=== PATIENT | male | born 1975 | race Caucasian/White ===

== ENCOUNTER 2018-01-04 17:24 | Inpatient (IN) | payer OTHER ==
[~2018-01-04] VITALS: Ht 175.3 cm; Wt 95.9 kg
--- NOTE | 2018-01-04 17:42 | ED GI/GU/ABDOMINAL COMPLAINT ---
History of Present Illness General Chief Complaint: Abdominal Pain/Flank Pain Stated Complaint: ABD PAIN, +N/V/D Source: patient Exam Limitations: no limitations Vital Signs & Intake/Output Vital Signs & Intake/Output Vital Signs Date Time Temp Pulse Resp B/P B/P Pulse O2 O2 Flow FiO2 Mean Ox Delivery Rate 01/04 2245 100.7 01/04 2155 101.5 01/04 2146 100.2 121 20 140/80 94 Room Air 01/04 2038 Room Air 01/04 2033 98.8 119 18 123/75 98 01/04 1728 98.7 123 15 149/91 97 Room Air Room Air Allergies Coded Allergies: morphine (VOMITING 01/04/18) Triage Note: PT SENT TO ED FROM [facility] TO RULE OUT DIVERTICULITIS. PT HAS BILATERAL LOWER ABD PAIN THAT STARTED YESTERDAY WITH NAUSEA AND VOMITING. +BRB IN STOOL, REPORTS +PRESSURE TO BLADDER AREA. MEDICATED WITH 4 MG PO ZOFRAN AT [facility]. PT NOTICEABLY UNCOMFORTABLE IN TRIAGE. Triage Nurses Notes Reviewed? 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 Patient has had a few episodes of nonbloody nonbilious emesis. Last bowel movement was within last 24 hours no blood no melena noted. Patient hasn't taken any medications for symptoms. Denies any dysuria hematuria or testicular pain or swelling back pain chest pain shortness of breath. Patient is complaining of intermittent shaky chills and tactile fevers. (Rojelio GARCIA,Jose) Reconcile Medications Duloxetine HCl 30 MG CAPSULE.DR 90 MG PO DAILY ANXIETY (Reported) Levothyroxine Sodium (Synthroid) 50 MCG TABLET 1 TAB PO DAILY HYPOTHYROIDISM (Reported) (Chad SINGH,Sukhwinder Melendez) Past History Travel History Traveled to [place] past 21 day No Medical History Any Pertinent Medical History? 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 No (Jose Ramierz) Review of Systems Review of Systems Constitutional: Reports: no symptoms. EENTM: Reports: no symptoms. Respiratory: Reports: no symptoms. Cardiovascular: Reports: no symptoms. GI: Reports: see HPI, abdominal pain. Genitourinary: Reports: no symptoms. Musculoskeletal: Reports: no symptoms. Skin: Reports: no symptoms. Neurological/Psychological: Reports: no symptoms. Hematologic/Endocrine: Reports: no symptoms. Immunologic/Allergic: Reports: no symptoms. All Other Systems: Reviewed and Negative (Jose Ramirez) Physical Exam Physical Exam General Appearance: mild distress Head: atraumatic Eyes: Bilateral: normal appearance. Ears, Nose, Throat, Mouth: moist mucous membrane Respiratory: normal breath sounds Cardiovascular: tachycardia Gastrointestinal: normal bowel sounds, soft, tenderness Extremities: normal range of motion Neurologic/Psych: no motor/sensory deficits, awake Core Measures ACS in differential dx? No Sepsis Present: Yes Sepsis Focused Exam Completed? Yes (Jose Ramirez) Progress Differential Diagnosis: AAA, AMI, appendicitis, biliary colic, bowel obstruction , colon cancer, cholecystitis, diverticulitis, epididymitis, esophageal varices, gastritis, hepatitis, hernia, hemorrhoids, ischemic bowel, inflamm bowel dis, orchitis, pancreatitis, prostatitis, peptic ulcer, PUD/GERD, perforated viscous, pyelonephritis, SBO, testicular torsion, ureterolithiasis, urinary retention, urethritis, UTI/pyelo Plan of Care: Orders Procedure Date/time Status Nothing by Mouth 01/05 B Active CBC WITHOUT DIFFERENTIAL 01/05 600 Active BASIC ELECTROLYTES PLUS BUN&CR 01/05 600 Active Weight 01/04 2146 Active Vital Signs 01/04 2146 Active Teach/Educate 01/04 2146 Active Pain Treatment and Response 01/04 2146 Active Nutritional Intake, Monitor 01/04 2146 Active Isolation 01/04 2146 Active Intake & Output 01/04 2146 Active Patient Care Conference 01/04 2146 Active Activity/Ambulation 01/04 2146 Active Pathway - chart 01/04 2057 Active LACTIC ACID 01/05 2044 Complete EKG 01/04 1930 Active Patient Data 01/04 1911 Active Code Status 01/04 1911 Active Add-on Test (ER Only) 01/04 1851 Active TYPE & SCREEN (NOT X-MATCH) 01/04 185 Complete Intake & Output 01/04 184 Active URINALYSIS 01/04 174 Active LACTIC ACID 01/04 174 Complete COMPREHENSIVE METABOLIC PANEL 01/04 174 Complete CBC WITHOUT DIFFERENTIAL 01/05 1744 Complete PROTHROMBIN TIME 01/04 1741 Complete Admit to inpatient 01/04 UNK Active VTE Mechanical Prophylaxis 01/04 UNK Active Vital Signs 01/04 UNK Active Intake & Output 01/04 UNK Complete Activity/Ambulation 01/04 UNK Active Current Medications Sig/Opal Start time Last Medication Dose Stop Time Status Admin Ceftriaxone Sodium 1,000 MG DAILY 01/05 0900 AC (Rocephin) Metronidazole 500 MG IQ8 01/05 0000 AC (Flagyl) N/A 1 UNIT (No Carrier) Heparin Sodium 5,000 UNIT Q8 01/04 2200 AC (Porcine) Acetaminophen 1,000 MG Q6P PRN 01/04 2100 AC 01/04 (Ofirmev) 2155 N/A 1 UNIT (No Carrier) Dextrose/Sodium 1,000 ML .Q8H 01/04 2100 AC 01/04 Chloride 2136 (D5-Normal Saline) Gentamicin Sulfate 240 MG ONE ONE 01/04 2100 CAN (Gentamicin) 01/04 2130 Dextrose/Water 100 ML (D5W) Lorazepam 0.5 MG Q4P PRN 01/04 2100 AC (Ativan) Morphine Sulfate 2 MG Q2P PRN 01/04 2100 AC (MORPHINE SULFATE) Ondansetron HCl 4 MG Q6PRN PRN 01/04 2100 AC (Zofran) Laboratory Tests 01/04/18 2250: Lactic Acid 0.6 L 01/04/181744: Anion Gap 12, Estimated GFR > 60, BUN/Creatinine Ratio 17.5, Glucose 122 H, Lactic Acid 1.2, Calcium 10.2, Total Bilirubin 1.1, AST 18, ALT 42, Alkaline Phosphatase 83, Total Protein 7.4, Albumin 4.7, Globulin 2.7, Albumin/Globulin Ratio 1.7, CBC w Diff MAN DIFF ORDERED, RBC 4.91, MCV 90.6, MCH 29.8, MCHC 33.0, RDW 13.9, MPV 7.8, Gran % 87.3 H, Lymphocytes % 6.3 L, Monocytes % 6.1, Eosinophils % 0, Basophils % 0.3, Absolute Granulocytes 17.9 H, Absolute Lymphocytes 1.3, Absolute Monocytes 1.2 H, Absolute Eosinophils 0, Absolute Basophils 0.1, Platelet Estimate ADEQUATE, Normocytic RBCs VERIFIED, Normochromic RBCs VERIFIED 01/04/18 1741: PT 13.5 H, INR 1.24 H Initially patient was in mild distress however requested only Toradol for pain, Reglan was also administered for continued nausea CT scan shows concerns of diverticulitis with perforation and free air I discussed results with patient where he suddenly became excessively anxious when he was administered Ativan. Patient was placed nothing by mouth I discussed patient with Dr. Washington who will admit patient under his service He states no emergent warranting of surgical intervention currently upon admission Diagnostic Imaging: Viewed by Me: CT Scan. Radiology Impression: acute abnormality Initial ED EKG: none Comments: PATIENT: JASPER HAM PRESENT AGE: 42 PATIENT ACCOUNT NO: [id number] : 76 LOCATION: [facility] ORDERING PHYSICIAN: Jose GARCIA SERVICE DATE: 01/04/18 EXAM TYPE: CAT - CT ABD & PELVIS W IV CONTRAST EXAMINATION: CT ABDOMEN AND PELVIS WITH CONTRAST CLINICAL INFORMATION: Generalized abdominal pain COMPARISON: 10/16/2011 TECHNIQUE: Multidetector volumetric imaging was performed from the lung bases through the pubic symphysis following the uneventful administration of: Oral contrast: No Intravenous contrast: 95 cc Optiray 320 Sagittal and coronal reformatted images were obtained on the technologist workstation. FINDINGS: LUNG BASES: The visualized lung bases are unremarkable. LIVER, GALLBLADDER, AND BILIARY TREE: The liver is normal in size, shape, and attenuation. No focal hepatic lesion or biliary ductal dilatation is present. The gallbladder is unremarkable with no evidence of radiopaque gallstones, gallbladder wall thickening, or obvious pericholecystic inflammatory changes. PANCREAS: Normal; no mass or surrounding fluid. SPLEEN: Normal size. No focal lesion. ADRENAL GLANDS: Normal; no mass. KIDNEYS AND URETERS: The kidneys are normal in size, shape, and attenuation. No hydronephrosis, hydroureter, or calculi. GASTROINTESTINAL TRACT: Stomach and small bowel are nondilated. The appendix is normal. There is moderate sigmoid diverticulosis with sigmoid wall thickening and adjacent fluid and fat stranding. The changes appear centered around a diverticulum in coronal image 41/91 and axial image 79/111, more consistent with acute diverticulitis and colitis. In addition, there is free air within the pelvis and extending retroperitoneally, adjacent the aorta and IVC, nearly to the level of the duodenum. No discrete abscess seen. ABDOMINAL WALL: No significant hernia is appreciated. LYMPHOVASCULAR STRUCTURES: No lymphadenopathy. The aorta is unremarkable. BLADDER: No focal mass or wall thickening seen. No bladder calculi. PELVIC VISCERA: The prostate and seminal vesicles are normal. OSSEOUS STRUCTURES: No acute or suspicious osseous abnormality. IMPRESSION: Findings consistent with perforated sigmoid diverticulitis. No abscess seen. Consider colonoscopy after treatment to exclude a microperforated colon cancer which can present similarly. This critical result was discussed with Jose Serrato MD by telephone at 01/04/2018 6:49 PM and it was ascertained that the content and urgency of the report was understood at the time of direct communication. DICTATED BY: Ronni Watson MD DATE/TIME DICTATED:01/04/181844 [employer] HAND FINISHER:HEENA DATE/TIME TRANSCRIBED:01/04/181844 (Jsoe Ramirez) Departure Departure Disposition: STILL A PATIENT Condition: Guarded Clinical Impression Primary Impression: Diverticulitis of intestine with perforation Referrals: Darlene SINGH,Nolberto Ly (PCP/Family) Departure Forms: Customer Survey General Discharge Information Admission Note Spoke With: Brock Washington DO Documentation of Exam: Documentation of any treatments & extenuating circumstances including Concerns Regarding Discharge (functional status, medication knowledge or non-compliance, living conditions, etc.) that warrant an admission rather than observation: [ Patient requires close observation IV antibiotics IV pain medications, repeat labs possible surgical intervention ANTIEMETICS IV fluids] (Jose Ramirez) PA/FLY FINISHER Co-Sign Statement Statement: ED Attending supervision documentation- [x] I saw and evaluated the patient. I have also reviewed all the pertinent lab results and diagnostic results. I agree with the findings and the plan of care as documented in the PA's/FLY FINISHER's documentation. [] I have reviewed the ED Record and agree with the PA's/FLY FINISHER's documentation. [] Additions or exceptions (if any) to the PAs/FLY FINISHER's note and plan are summarized below: [] (Chad SINGH,Sukhwinder Melendez)
[2018-01-04 18:00] LABS: ABSOLUTE BASOPHIL COUNT 0.1 /CUMM (0.0-0.2); ABSOLUTE EOSINOPHIL COUNT 0 /CUMM (0.0-0.7); ABSOLUTE GRANULOCYTE CT 17.9 /CUMM (1.4-6.5); ABSOLUTE LYMPH COUNT 1.3 /CUMM (1.2-3.4); ABSOLUTE MONOCYTE COUNT 1.2 /CUMM (0.10-0.60); BASOPHIL % 0.3 % (0.0-2.0); EOSINOPHIL % 0 % (0-5); HEMATOCRIT 44.4 % (42-52); MEAN CORPUSCULAR HGB 29.8 PG (27.0-31.0); MEAN CORPUSCULAR VOLUME 90.6 FL (80.0-94.0); MEAN PLATELET VOLUME 7.8 FL (7.4-10.4); PLATELET COUNT 216 /CUMM (130-400); RBC DISTRIBUTION WIDTH 13.9 % (11.5-14.5); RED BLOOD CELL CT 4.91 /CUMM (4.70-6.10); WHITE BLOOD CELL COUNT 20.5 /CUMM (4.8-10.8)
[2018-01-04 18:01] LABS: GRANULOCYTE % 87.3 % (42.2-75.2)
--- NOTE | 2018-01-04 18:54 | CT SCAN REPORT ---
EXAMINATION: CT ABDOMEN AND PELVIS WITH CONTRAST CLINICAL INFORMATION: Generalized abdominal pain COMPARISON: 10/16/2011 TECHNIQUE: Multidetector volumetric imaging was performed from the lung bases through the pubic symphysis following the uneventful administration of: Oral contrast: No Intravenous contrast: 95 cc Optiray 320 Sagittal and coronal reformatted images were obtained on the technologist workstation. FINDINGS: LUNG BASES: The visualized lung bases are unremarkable. LIVER, GALLBLADDER, AND BILIARY TREE: The liver is normal in size, shape, and attenuation. No focal hepatic lesion or biliary ductal dilatation is present. The gallbladder is unremarkable with no evidence of radiopaque gallstones, gallbladder wall thickening, or obvious pericholecystic inflammatory changes. PANCREAS: Normal; no mass or surrounding fluid. SPLEEN: Normal size. No focal lesion. ADRENAL GLANDS: Normal; no mass. KIDNEYS AND URETERS: The kidneys are normal in size, shape, and attenuation. No hydronephrosis, hydroureter, or calculi. GASTROINTESTINAL TRACT: Stomach and small bowel are nondilated. The appendix is normal. There is moderate sigmoid diverticulosis with sigmoid wall thickening and adjacent fluid and fat stranding. The changes appear centered around a diverticulum in coronal image 41/91 and axial image 79/111, more consistent with acute diverticulitis and colitis. In addition, there is free air within the pelvis and extending retroperitoneally, adjacent the aorta and IVC, nearly to the level of the duodenum. No discrete abscess seen. ABDOMINAL WALL: No significant hernia is appreciated. LYMPHOVASCULAR STRUCTURES: No lymphadenopathy. The aorta is unremarkable. BLADDER: No focal mass or wall thickening seen. No bladder calculi. PELVIC VISCERA: The prostate and seminal vesicles are normal. OSSEOUS STRUCTURES: No acute or suspicious osseous abnormality. IMPRESSION: Findings consistent with perforated sigmoid diverticulitis. No abscess seen. Consider colonoscopy after treatment to exclude a microperforated colon cancer which can present similarly. This critical result was discussed with Jose Serrato MD by telephone at 01/04/2018 6:49 PM and it was ascertained that the content and urgency of the report was understood at the time of direct communication.
--- NOTE | 2018-01-04 19:12 | History & Physical Pre-Op ---
Katelyn Joy 01/04/18 1912: General Information and HPI Source of Information: patient, family History of Present Illness: 42m presents to ED with approximately 18hr history of worsening lower abd pain. He ate breakfast yesterday, then had vague lower abdominal pain thoughout the day which worsened overnight. He was nauseous though could not vomit. Had sweats and subjective fever, though temp was normal per . Last Bm this am, mix of loose and constipated. No issues voiding. Called out of work today, and felt worse so presented to ED. No history of diverticular disease, no history of GI issues. PMHx significant for laryngeal ca (diagnosed 3 yrs ago, treated with RT/CT, now in remission). Did have a G-tube during that time that has since been removed. No other history of abdominal surgery Allergies/Medications Allergies: Coded Allergies: morphine (VOMITING 01/04/18) Home Med list Duloxetine HCl 30 MG CAPSULE.DR 90 MG PO DAILY ANXIETY (Reported) Levothyroxine Sodium (Synthroid) 50 MCG TABLET 1 TAB PO DAILY HYPOTHYROIDISM (Reported) Past History Medical History EENT: hx laryngeal ca Cardiovascular: NONE Respiratory: NONE Gastrointestinal: sp Gtube (now removed) Renal: NONE Psychiatric: anxiety, depression Endocrine: HYPOTHYROIDISM Blood Disorders: NONE Cancer(s): laryngeal ca 2015- treated with RT/CT. remission Surgical History Pertinent Surgical History: gtube 2014, now removed, Past Family/Social History Psychosocial History Where Do You Live? Home Who Do You Live With? 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 ext- calves soft nt Last 24 Hrs of Labs/Nayan: Laboratory Tests 01/04/18 1745: Anion Gap 12, Estimated GFR > 60, BUN/Creatinine Ratio 17.5, Glucose 122 H, Lactic Acid 1.2, Calcium 10.2, Total Bilirubin 1.1, AST 18, ALT 42, Alkaline Phosphatase 83, Total Protein 7.4, Albumin 4.7, Globulin 2.7, Albumin/Globulin Ratio 1.7, CBC w Diff MAN DIFF ORDERED, RBC 4.91, MCV 90.6, MCH 29.8, MCHC 33.0, RDW 13.9, MPV 7.8, Gran % 87.3 H, Lymphocytes % 6.3 L, Monocytes % 6.1, Eosinophils % 0, Basophils % 0.3, Absolute Granulocytes 17.9 H, Absolute Lymphocytes 1.3, Absolute Monocytes 1.2 H, Absolute Eosinophils 0, Absolute Basophils 0.1, Platelet Estimate ADEQUATE, Normocytic RBCs VERIFIED, Normochromic RBCs VERIFIED 01/04/18 174: PT 13.5 H, INR 1.24 H Diagnostic Data Other Results SERVICE DATE: 01/04/18-1755 EXAM TYPE: CAT - CT ABD & PELVIS W IV CONTRAST EXAMINATION: CT ABDOMEN AND PELVIS WITH CONTRAST CLINICAL INFORMATION: Generalized abdominal pain COMPARISON: 10/16/2011 TECHNIQUE: Multidetector volumetric imaging was performed from the lung bases through the pubic symphysis following the uneventful administration of: Oral contrast: No Intravenous contrast: 95 cc Optiray 320 Sagittal and coronal reformatted images were obtained on the technologist workstation. FINDINGS: LUNG BASES: The visualized lung bases are unremarkable. LIVER, GALLBLADDER, AND BILIARY TREE: The liver is normal in size, shape, and attenuation. No focal hepatic lesion or biliary ductal dilatation is present. The gallbladder is unremarkable with no evidence of radiopaque gallstones, gallbladder wall thickening, or obvious pericholecystic inflammatory changes. PANCREAS: Normal; no mass or surrounding fluid. SPLEEN: Normal size. No focal lesion. ADRENAL GLANDS: Normal; no mass. KIDNEYS AND URETERS: The kidneys are normal in size, shape, and attenuation. No hydronephrosis, hydroureter, or calculi. GASTROINTESTINAL TRACT: Stomach and small bowel are nondilated. The appendix is normal. There is moderate sigmoid diverticulosis with sigmoid wall thickening and adjacent fluid and fat stranding. The changes appear centered around a diverticulum in coronal image 41/91 and axial image 79/111, more consistent with acute diverticulitis and colitis. In addition, there is free air within the pelvis and extending retroperitoneally, adjacent the aorta and IVC, nearly to the level of the duodenum. No discrete abscess seen. ABDOMINAL WALL: No significant hernia is appreciated. LYMPHOVASCULAR STRUCTURES: No lymphadenopathy. The aorta is unremarkable. BLADDER: No focal mass or wall thickening seen. No bladder calculi. PELVIC VISCERA: The prostate and seminal vesicles are normal. OSSEOUS STRUCTURES: No acute or suspicious osseous abnormality. IMPRESSION: Findings consistent with perforated sigmoid diverticulitis. No abscess seen. Consider colonoscopy after treatment to exclude a microperforated colon cancer which can present similarly. Assessment/Plan Assessment/Plan: A- 42yoM with contained pelvic/retroperitoneal perforation, likely diverticular in origin, with significant leukocytosis and tachycardia P- Dw Dr. Washington, imaging reviewed personally by him. No acute surgical intervention required at this time. Admit as inpt to surgical service, npo, serial labs, serial abd exams, gentx1 now, jamil/flag continuous, ivf, iv meds. will closely monitor. As Ranked By This Provider Problem List: 1. Diverticulitis of intestine with perforation Brock Washington DO 01/05/18 0959: Attending MD Review Statement Attending Statement Attending MD Statement: examined this patient, discuss w/resident/PA/STRIP TANK TENDER, agreed w/resident/PA/STRIP TANK TENDER, discussed with family, reviewed EMR data (avail), discussed w/ nursing, reviewed images Attending Assessment/Plan: Patient seen and examined, agree with above. Overnight events noted, currently appeared comfortable/sleeping/relaxed, did c/o some lower abdominal tenderness, mild nausea. Tm 101.4, Tc 99 HR 120's-110's BP elevated. Abd-soft, ND, lower abdominal tenderness without peritoneal signs. Labs - chemistry good, WBC down to 15 from 20. Currently patient appears to be comfortable and did admit to being hungry which he was not yesterday, his pain is only severe with getting up and he is not taking much as far pain meds go. At this time will continue conservatice management as patient seems ot be comfortable, encouraged to take pain meds as needed will put on Toradol, increase ceftriaxone to 2 grams (will give an extra gram right now), Gentamicin x 1 dose today (240 mg), NPO/IVF, DVT prophylaxis (discussed importance with patient and family), I did explain to patient and family that if his condition worsens will likely need a laparotomy and an ostomy (which they understood) and I explained that this may take time to improve completely. Patient and family understand everything and agree with the plan.
--- NOTE | 2018-01-04 19:12 | Admission Core Measures ---
Acute Coronary Syndrome (CM) ACS Core Measures Acute Coronary Syndrome Diagnosis No Congestive Heart Failure (NEW) CHF Core Measures Congestive Heart Failure Diagnosis No Cerebrovascular Accident (NEW) CVA Core Measures CVA/TIA Diagnosis No Venous Thromboembolism VTE Core Carine (View Protocol) VTE Risk Factors Acute Medical Illness No Mechanical VTE Prophylaxis d/t N/A MechProphylax Ordered No VTE Pharm Prophylaxis d/t NA PharmProphylax ordered Problem List As ranked by this Provider includes Assessment & Plan 1. Diverticulitis of intestine with perforation
[2018-01-04 19:13] LABS: PT 13.5 SEC (9.4-12.5)
[2018-01-04] MEDS ORDERED: DULOXETINE HCL30 MG PO (21:03)
[2018-01-04] MEDS ORDERED: SYNTHROID50 MCG PO (21:04)
[2018-01-04 21:46] VITALS: BP 140/80
[2018-01-05 06:45] VITALS: BP 168/110
--- NOTE | 2018-01-05 07:06 | PN- General Surgery ---
Subjective Subjective: Febrile overnight, up to 101.5, with ongoing tachycardia 120s. Reports abdominal pain currently "5", improved from "8/10" after iv toradol. +sweats. no chills. Denies dizziness. No shortness of breath. No chest pains. Objective Vital Signs and I&Os Vital Signs Date Time Temp Pulse Resp B/P B/P Pulse O2 O2 Flow FiO2 Mean Ox Delivery Rate 01/05 645 99.2 112 18 168/110 96 Room Air 01/05 0420 98.8 01/04 2245 100.7 01/04 2155 101.5 01/04 2146 100.2 121 20 140/80 94 Room Air 01/04 2038 Room Air 01/04 2033 98.8 119 18 123/75 98 01/04 1728 98.7 123 15 149/91 97 Room Air Room Air Intake & Output 01/05 0800 01/05 0000 01/04 1600 01/04 0800 01/04 0000 01/03 1600 Intake Total 1000 1250 Output Total 250 Balance 1000 1000 Intake, IV 1000 1250 Intake, Oral 0 Output, Urine 250 Patient 204 lb 190 lb Weight Weight Bed scale Reported by Patient Measurement Method Physical Exam: General - alert & oriented x 3. uncomfortable and diaphoretic. Lungs - clear Cardiac - s1s2. tachycardic 120s Abdomen - tenderness along both flanks Extremities - warm bilaterally. no c/c/e. calves soft and nontender. athrombics in place Current Medications: Current Medications Sig/Opal Start time Last Medication Dose Route Stop Time Status Admin Acetaminophen 1,000 MG Q6P PRN 01/04 2100 AC 01/04 N/A 1 UNIT IV 2154 Ceftriaxone Sodium 1,000 MG DAILY 01/05 09 AC IV Ceftriaxone Sodium 0 .STK-MED ONE 01/04 1913 DC .ROUTE Ceftriaxone Sodium 1,000 MG ONCE ONE 01/04 190 DC 01/04 IV 01/04 190 190 Dextrose/Sodium 1,000 ML .Q8H 01/04 2100 AC 01/05 Chloride IV 0548 Gentamicin Sulfate 240 MG ONE ONE 01/04 2100 CAN Dextrose/Water 100 ML IV 01/04 2130 Gentamicin Sulfate 80 MG ONE ONE 01/04 2100 DC 01/04 Dextrose/Water 100 ML IV 01/04 2129 222 Heparin Sodium 5,000 UNIT Q8 01/04 2200 AC (Porcine) SC Ketorolac 30 MG ONCE ONE 01/05 0345 DC 01/05 Tromethamine IV 01/05 346 034 Ketorolac 0 .STK-MED ONE 01/05 1840 DC Tromethamine .ROUTE Ketorolac 30 MG ONCE ONE 01/04 1800 DC 01/04 Tromethamine IV 01/04 1801 184 Lorazepam 0.5 MG Q4P PRN 01/04 2100 AC IV Lorazepam 0 .STK-MED ONE 01/04 190 DC .ROUTE Metoclopramide HCl 0 .STK-MED ONE 01/04 184 DC .ROUTE Metoclopramide HCl 10 MG ONCE ONE 01/04 1800 DC 01/04 IV 01/04 1801 184 Metronidazole 500 MG IQ8 01/05 0000 AC 01/04 N/A 1 UNIT IV 2346 Metronidazole 500 MG ONCE ONE 01/04 1900 DC 01/04 N/A 1 UNIT IV 01/04 1959 193 Morphine Sulfate 2 MG Q2P PRN 01/04 2100 AC IV Ondansetron HCl 4 MG Q6PRN PRN 01/04 2100 AC IV Sodium Chloride 1,000 ML BOLUS ONE 01/04 190 DC 01/04 IV 01/04 1959 190 Sodium Chloride 1,000 ML BOLUS ONE 01/04 181 DC 01/04 IV 01/04 191 184 Results Last 48 Hours of Labs: Laboratory Tests 01/04 01/04 01/04 2250 1745 1741 Chemistry Sodium (137 - 145 mmol/L) 142 Potassium (3.5 - 5.1 mmol/L) 3.9 Chloride (98 - 107 mmol/L) 102 Carbon Dioxide (22 - 30 mmol/L) 29 Anion Gap (5 - 16) 12 BUN (9 - 20 mg/dL) 14 Creatinine (0.7 - 1.2 mg/dL) 0.8 Estimated GFR (>60 ml/min) > 60 BUN/Creatinine Ratio (7 - 25 %) 17.5 Glucose (65 - 99 mg/dL) 122 H Lactic Acid (0.7 - 2.1 mmol/L) 0.6 L 1.2 Calcium (8.4 - 10.2 mg/dL) 10.2 Total Bilirubin (0.2 - 1.3 mg/dL) 1.1 AST (17 - 59 U/L) 18 ALT (21 - 72 U/L) 42 Alkaline Phosphatase (< 127 U/L) 83 Total Protein (6.3 - 8.2 g/dL) 7.4 Albumin (3.5 - 5.0 g/dL) 4.7 Globulin (1.9 - 4.2 gm/dL) 2.7 Albumin/Globulin Ratio (1.1 - 2.2 %) 1.7 Coagulation PT (9.4 - 12.5 SEC) 13.5 H INR (0.90 - 1.17) 1.24 H Hematology CBC w Diff MAN DIFF ORDERED WBC (4.8 - 10.8 /CUMM) 20.5 H RBC (4.70 - 6.10 /CUMM) 4.91 Hgb (14.0 - 18.0 G/DL) 14.6 Hct (42 - 52 %) 44.4 MCV (80.0 - 94.0 FL) 90.6 MCH (27.0 - 31.0 PG) 29.8 MCHC (33.0 - 37.0 G/DL) 33.0 RDW (11.5 - 14.5 %) 13.9 Plt Count (130 - 400 /CUMM) 216 MPV (7.4 - 10.4 FL) 7.8 Gran % (42.2 - 75.2 %) 87.3 H Lymphocytes % (20.5 - 51.1 %) 6.3 L Monocytes % (1.7 - 9.3 %) 6.1 Eosinophils % (0 - 5 %) 0 Basophils % (0.0 - 2.0 %) 0.3 Absolute Granulocytes (1.4 - 6.5 /CUMM) 17.9 H Absolute Lymphocytes (1.2 - 3.4 /CUMM) 1.3 Absolute Monocytes (0.10 - 0.60 /CUMM) 1.2 H Absolute Eosinophils (0.0 - 0.7 /CUMM) 0 Absolute Basophils (0.0 - 0.2 /CUMM) 0.1 Platelet Estimate (ADEQUATE) ADEQUATE Normocytic RBCs VERIFIED Normochromic RBCs VERIFIED Assessment/Plan Assessment/Plan This 42 year old male with hx significant for laryngeal ca (diagnosed 3 yrs ago, treated with RT/CT, now in remission) and history of G-tube during that time that has since been removed, with perforated sigmoid diverticulitis with imaging showing free air within the pelvis and extending retroperitoneally, tachycardic overnight and febrile currently npo / ivf iv rocephin / flagyl ordered hep sc - dvt ppx iv tylenol / toradol / morphine prn pain AM labs pending may require surgical exploration will d/w Core Measures Venous Thromboembolism VTE Risk Factors Acute Medical Illness No Mechanical VTE Prophylaxis d/t N/A MechProphylax Ordered No VTE Pharm Prophylaxis d/t NA PharmProphylax ordered
[2018-01-05 08:59] LABS: ABSOLUTE BASOPHIL COUNT 0 /CUMM (0.0-0.2); ABSOLUTE EOSINOPHIL COUNT 0 /CUMM (0.0-0.7); ABSOLUTE GRANULOCYTE CT 12.9 /CUMM (1.4-6.5); ABSOLUTE LYMPH COUNT 1.1 /CUMM (1.2-3.4); ABSOLUTE MONOCYTE COUNT 1.2 /CUMM (0.10-0.60); BASOPHIL % 0 % (0.0-2.0); EOSINOPHIL % 0 % (0-5); HEMATOCRIT 40.4 % (42-52); MEAN CORPUSCULAR HGB 30.2 PG (27.0-31.0); MEAN CORPUSCULAR HGB CONC 33.6 G/DL (33.0-37.0); MEAN CORPUSCULAR VOLUME 89.7 FL (80.0-94.0); MEAN PLATELET VOLUME 8.2 FL (7.4-10.4); PLATELET COUNT 170 /CUMM (130-400); RBC DISTRIBUTION WIDTH 13.5 % (11.5-14.5); RED BLOOD CELL CT 4.51 /CUMM (4.70-6.10); WHITE BLOOD CELL COUNT 15.2 /CUMM (4.8-10.8)
[2018-01-05 09:35] LABS: GRANULOCYTE % 84.8 % (42.2-75.2)
[2018-01-05] MEDS ORDERED: DULOXETINE HCL60 MG PO (12:25)
[2018-01-05 16:00] VITALS: BP 142/98
[2018-01-05 22:04] VITALS: BP 138/90
[2018-01-06 06:31] VITALS: BP 124/80
--- NOTE | 2018-01-06 07:41 | PN- General Surgery ---
See Addendum Subjective Subjective: Patient feeling significantly better this morning. He states he was able to sleep most of the night. His pain is now minimal located in the suprapubic region. He denies any fever overnight, states he had mild sweats. He states he is hungry, positive flatness, much less distention per patient and overall he is feeling well. Objective Vital Signs and I&Os Vital Signs Date Time Temp Pulse Resp B/P B/P Pulse O2 O2 Flow FiO2 Mean Ox Delivery Rate 01/06 631 97.9 85 20 124/80 98 Room Air 01/05 2204 98.9 94 20 138/90 97 Room Air 01/05 1600 98.2 96 20 142/98 96 Room Air 01/05 1516 98.8 98 20 96 Intake & Output 01/06 0800 01/06 0000 01/05 1600 01/05 0800 01/05 0000 01/04 1600 Intake Total 500 1500 1000 1250 Output Total 250 Balance 500 1500 1000 1000 Intake, IV 500 1500 1000 1250 Intake, Oral 0 0 Output, Urine 250 Patient 204 lb 190 lb Weight Weight Bed scale Reported by Patient Measurement Method Physical Exam: Well-developed well-nourished no apparent distress. HEENT: Atraumatic, extraocular motion intact Neck: Supple, no lymphadenopathy Respiratory: No respiratory distress Abdomen: Soft, tenderness in the suprapubic region and mildly into the left lower quadrant and right lower quadrant. Significantly improved per patient. No distention. Positive bowel sounds. No rebound, no guarding, no tympany Extremities: No edema, no calf pain Neuro: Alert and oriented x3 Psych: Mood affect normal, normal memory normal judgment. Skin: Warm and dry, no rash on exposed skin Results Last 48 Hours of Labs: Laboratory Tests 01/05 01/05 01/04 0743 0600 2250 Chemistry Sodium (137 - 145 mmol/L) 141 Cancelled Potassium (3.5 - 5.1 mmol/L) 3.7 Cancelled Chloride (98 - 107 mmol/L) 106 Cancelled Carbon Dioxide (22 - 30 mmol/L) 25 Cancelled Anion Gap (5 - 16) 10 Cancelled BUN (9 - 20 mg/dL) 11 Cancelled Creatinine (0.7 - 1.2 mg/dL) 0.7 Cancelled Estimated GFR (>60 ml/min) > 60 BUN/Creatinine Ratio (7 - 25 %) 15.7 Cancelled Lactic Acid (0.7 - 2.1 mmol/L) 0.6 L Hematology CBC w Diff NO MAN DIFF REQ Cancelled WBC (4.8 - 10.8 /CUMM) 15.2 H Cancelled RBC (4.70 - 6.10 /CUMM) 4.51 L Cancelled Hgb (14.0 - 18.0 G/DL) 13.6 L Cancelled Hct (42 - 52 %) 40.4 L Cancelled MCV (80.0 - 94.0 FL) 89.7 Cancelled MCH (27.0 - 31.0 PG) 30.2 Cancelled MCHC (33.0 - 37.0 G/DL) 33.6 Cancelled RDW (11.5 - 14.5 %) 13.5 Cancelled Plt Count (130 - 400 /CUMM) 170 Cancelled MPV (7.4 - 10.4 FL) 8.2 Cancelled Gran % (42.2 - 75.2 %) 84.8 H Lymphocytes % (20.5 - 51.1 %) 7.3 L Monocytes % (1.7 - 9.3 %) 7.9 Eosinophils % (0 - 5 %) 0 Basophils % (0.0 - 2.0 %) 0 Absolute Granulocytes (1.4 - 6.5 /CUMM) 12.9 H Absolute Lymphocytes (1.2 - 3.4 /CUMM) 1.1 L Absolute Monocytes (0.10 - 0.60 /CUMM) 1.2 H Absolute Eosinophils (0.0 - 0.7 /CUMM) 0 Absolute Basophils (0.0 - 0.2 /CUMM) 0 05/05 05/ 05 1745 1744 1741 Chemistry Sodium (137 - 145 mmol/L) 142 Potassium (3.5 - 5.1 mmol/L) 3.9 Chloride (98 - 107 mmol/L) 102 Carbon Dioxide (22 - 30 mmol/L) 29 Anion Gap (5 - 16) 12 BUN (9 - 20 mg/dL) 14 Creatinine (0.7 - 1.2 mg/dL) 0.8 Estimated GFR (>60 ml/min) > 60 BUN/Creatinine Ratio (7 - 25 %) 17.5 Glucose (65 - 99 mg/dL) 122 H Lactic Acid (0.7 - 2.1 mmol/L) 1.2 Calcium (8.4 - 10.2 mg/dL) 10.2 Total Bilirubin (0.2 - 1.3 mg/dL) 1.1 AST (17 - 59 U/L) 18 ALT (21 - 72 U/L) 42 Alkaline Phosphatase (< 127 U/L) 83 Total Protein (6.3 - 8.2 g/dL) 7.4 Albumin (3.5 - 5.0 g/dL) 4.7 Globulin (1.9 - 4.2 gm/dL) 2.7 Albumin/Globulin Ratio (1.1 - 2.2 %) 1.7 Coagulation PT (9.4 - 12.5 SEC) 13.5 H INR (0.90 - 1.17) 1.24 H Hematology CBC w Diff MAN DIFF ORDERED WBC (4.8 - 10.8 /CUMM) 20.5 H RBC (4.70 - 6.10 /CUMM) 4.91 Hgb (14.0 - 18.0 G/DL) 14.6 Hct (42 - 52 %) 44.4 MCV (80.0 - 94.0 FL) 90.6 MCH (27.0 - 31.0 PG) 29.8 MCHC (33.0 - 37.0 G/DL) 33.0 RDW (11.5 - 14.5 %) 13.9 Plt Count (130 - 400 /CUMM) 216 MPV (7.4 - 10.4 FL) 7.8 Gran % (42.2 - 75.2 %) 87.3 H Lymphocytes % (20.5 - 51.1 %) 6.3 L Monocytes % (1.7 - 9.3 %) 6.1 Eosinophils % (0 - 5 %) 0 Basophils % (0.0 - 2.0 %) 0.3 Absolute Granulocytes (1.4 - 6.5 /CUMM) 17.9 H Absolute Lymphocytes (1.2 - 3.4 /CUMM) 1.3 Absolute Monocytes (0.10 - 0.60 /CUMM) 1.2 H Absolute Eosinophils (0.0 - 0.7 /CUMM) 0 Absolute Basophils (0.0 - 0.2 /CUMM) 0.1 Platelet Estimate (ADEQUATE) ADEQUATE Normocytic RBCs VERIFIED Normochromic RBCs VERIFIED Urines Urine Color Cancelled Urine Clarity Cancelled Urine pH Cancelled Ur Specific [place] [facility] Cancelled Urine Protein Cancelled Urine Ketones Cancelled Urine Nitrite Cancelled Urine Bilirubin Cancelled Urine Urobilinogen Cancelled Ur Leukocyte Esterase Cancelled Ur Microscopic Cancelled Urine Hemoglobin Cancelled Urine Glucose Cancelled Assessment/Plan Assessment/Plan Hospital day #2 status post perforated diverticulitis with free air currently npo / ivf iv rocephin / flagyl hep sc - dvt ppx iv tylenol / toradol / morphine prn pain AM labs pending If his white count continues to decline on this morning's labs, advance to clears Encourage ambulation will d/w Core Measures Venous Thromboembolism VTE Risk Factors Acute Medical Illness No Mechanical VTE Prophylaxis d/t N/A MechProphylax Ordered No VTE Pharm Prophylaxis d/t NA PharmProphylax ordered
[2018-01-06 09:31] LABS: ABSOLUTE BASOPHIL COUNT 0 /CUMM (0.0-0.2); ABSOLUTE EOSINOPHIL COUNT 0 /CUMM (0.0-0.7); ABSOLUTE LYMPH COUNT 1.1 /CUMM (1.2-3.4); ABSOLUTE MONOCYTE COUNT 0.9 /CUMM (0.10-0.60); BASOPHIL % 0.1 % (0.0-2.0); EOSINOPHIL % 0.3 % (0-5); GRANULOCYTE % 82.9 % (42.2-75.2); HEMATOCRIT 41.5 % (42-52); MEAN PLATELET VOLUME 8.6 FL (7.4-10.4); PLATELET COUNT 180 /CUMM (130-400); RBC DISTRIBUTION WIDTH 13.9 % (11.5-14.5); RED BLOOD CELL CT 4.57 /CUMM (4.70-6.10); WHITE BLOOD CELL COUNT 12.1 /CUMM (4.8-10.8)
[2018-01-06 14:58] VITALS: BP 128/40
[2018-01-06 22:09] VITALS: BP 150/90
[2018-01-07 06:36] VITALS: BP 150/96
--- NOTE | 2018-01-07 08:25 | PN- General Surgery ---
See Addendum Subjective Subjective: Patient reports improvement in his abdominal pain, which he describes as gasey. He reports associated nausea, which is controlled with Zofran and diaphoresis. He reports ambulating in the halls frequently and is passing flatus. Denies fever, chills, chest pain, sob. Tolerating clears without any nausea or vomiting. Objective Vital Signs and I&Os Vital Signs Date Time Temp Pulse Resp B/P B/P Pulse O2 O2 Flow FiO2 Mean Ox Delivery Rate 01/08 636 98.5 88 20 150/96 98 Room Air 01/06 220 99.3 93 20 150/90 97 Room Air 01/06 1458 98.0 97 18 128/40 97 Room Air Intake & Output 01/07 0000 01/06 0000 Intake Total 1075 603 006 3717 500 Output Total Balance 1075 280 786 7696 500 Intake, IV 768 242 5676 500 Intake, Oral 200 120 800 Number 0 Bowel Movements Patient 211 lb 205 lb Weight Physical Exam: Gen - resting comfortably in nad Cardiac - S1S2 noted Lungs - CTAB Abd - soft, nondistended, hypoactive bs, dull to percussion, mildly tender in LLQ no rebound or guarding noted. Ext - no edema or calf tenderness Current Medications: Current Medications Sig/Opal Start time Last Medication Dose Route Stop Time Status Admin Acetaminophen 1,000 MG .STK-MED ONE 01/06 1045 DC IV 01/06 1046 Acetaminophen 1,000 MG Q6P PRN 01/04 2100 AC 01/06 N/A 1 UNIT IV 1047 Ceftriaxone Sodium 2,000 MG DAILY 01/06 0900 AC 01/07 IV 0805 Dextrose/Sodium 1,000 ML .Q8H 01/04 2100 AC 01/07 Chloride IV 0523 Duloxetine HCl 60 MG AT BEDTIME 01/05 2100 AC 01/06 PO 2013 Heparin Sodium 5,000 UNIT Q8 01/04 2200 AC 01/07 (Porcine) SC 0549 Ketorolac 30 MG .STK-MED ONE 01/06 2010 DC Tromethamine IM 01/06 2011 Ketorolac 30 MG Q6P PRN 01/05 1015 AC 01/06 Tromethamine IV 2013 Levothyroxine Sodium 0.05 MG DAILY AC 01/05 1227 AC 01/07 PO 0550 Lorazepam 0.5 MG Q4P PRN 01/04 2100 AC 01/06 IV 2112 Metronidazole 500 MG IQ8 01/05 0000 AC 01/07 N/A 1 UNIT IV 0800 Morphine Sulfate 2 MG Q2P PRN 01/04 2100 AC IV Ondansetron HCl 4 MG .STK-MED ONE 01/06 2018 DC IM 01/06 2019 Ondansetron HCl 4 MG .STK-MED ONE 01/06 1044 DC IM 01/06 1045 Ondansetron HCl 4 MG Q6PRN PRN 01/04 2100 AC 01/07 IV 0549 Patient Medication 1 ED ONE ONE 01/06 1545 DC 01/06 Teaching ED 01/06 1546 1653 Results Last 48 Hours of Labs: Laboratory Tests 01/07 01/06 0810 0814 Chemistry Sodium (137 - 145 mmol/L) Pending 143 Potassium (3.5 - 5.1 mmol/L) Pending 3.6 Chloride (98 - 107 mmol/L) Pending 106 Carbon Dioxide (22 - 30 mmol/L) Pending 24 Anion Gap (5 - 16) Pending 13 BUN (9 - 20 mg/dL) Pending 12 Creatinine (0.7 - 1.2 mg/dL) Pending 0.7 Estimated GFR (>60 ml/min) > 60 BUN/Creatinine Ratio (7 - 25 %) Pending 17.1 Hematology CBC w Diff Pending NO MAN DIFF REQ WBC (4.8 - 10.8 /CUMM) Pending 12.1 H RBC (4.70 - 6.10 /CUMM) Pending 4.57 L Hgb (14.0 - 18.0 G/DL) Pending 13.7 L Hct (42 - 52 %) Pending 41.5 L MCV (80.0 - 94.0 FL) Pending 91.0 MCH (27.0 - 31.0 PG) Pending 30.0 MCHC (33.0 - 37.0 G/DL) Pending 33.0 RDW (11.5 - 14.5 %) Pending 13.9 Plt Count (130 - 400 /CUMM) Pending 180 MPV (7.4 - 10.4 FL) Pending 8.6 Gran % (42.2 - 75.2 %) 82.9 H Lymphocytes % (20.5 - 51.1 %) 9.5 L Monocytes % (1.7 - 9.3 %) 7.2 Eosinophils % (0 - 5 %) 0.3 Basophils % (0.0 - 2.0 %) 0.1 Absolute Granulocytes (1.4 - 6.5 /CUMM) 10.0 H Absolute Lymphocytes (1.2 - 3.4 /CUMM) 1.1 L Absolute Monocytes (0.10 - 0.60 /CUMM) 0.9 H Absolute Eosinophils (0.0 - 0.7 /CUMM) 0 Absolute Basophils (0.0 - 0.2 /CUMM) 0 Assessment/Plan Assessment/Plan 42 M admitted with first episode of perforated sigmoid diverticulitis, improving with conservative management Advance to low fiber, d/c IVF Cont IV rocephin/flagyl Antiemetic/analgesics prn DVT ppx - hsq, ambulate Home meds on board F/u labs Anticipate d/c within 24 - 48 hrs Will d/w Dr. Washington Core Measures Venous Thromboembolism VTE Risk Factors Acute Medical Illness No Mechanical VTE Prophylaxis d/t N/A MechProphylax Ordered No VTE Pharm Prophylaxis d/t NA PharmProphylax ordered
[2018-01-07 08:49] LABS: ABSOLUTE BASOPHIL COUNT 0 /CUMM (0.0-0.2); ABSOLUTE EOSINOPHIL COUNT 0 /CUMM (0.0-0.7); ABSOLUTE GRANULOCYTE CT 6.9 /CUMM (1.4-6.5); ABSOLUTE LYMPH COUNT 1.2 /CUMM (1.2-3.4); ABSOLUTE MONOCYTE COUNT 0.6 /CUMM (0.10-0.60); BASOPHIL % 0 % (0.0-2.0); EOSINOPHIL % 0 % (0-5); GRANULOCYTE % 79.8 % (42.2-75.2); HEMATOCRIT 42.8 % (42-52); MEAN CORPUSCULAR HGB 30.3 PG (27.0-31.0); MEAN CORPUSCULAR HGB CONC 33.6 G/DL (33.0-37.0); MEAN CORPUSCULAR VOLUME 90.3 FL (80.0-94.0); MEAN PLATELET VOLUME 8.1 FL (7.4-10.4); PLATELET COUNT 223 /CUMM (130-400); RBC DISTRIBUTION WIDTH 13.5 % (11.5-14.5); RED BLOOD CELL CT 4.74 /CUMM (4.70-6.10); WHITE BLOOD CELL COUNT 8.6 /CUMM (4.8-10.8)
--- NOTE | 2018-01-07 09:11 | Patient Discharge Instructions ---
Discharge Instructions General Discharge Information You were seen/treated for: Perforated sigmoid diverticulitis You had these procedures: None Watch for these problems: Increased abdominal pain/distention, nausea, vomiting, fever, chills Special Instructions: Follow up with Dr. Washington as needed with any concerns Follow up with your PCP given recent admission for perforated diverticulitis Diet Continue normal diet: No Recommended Diet: Low Residue Activity Full Activity/No Limits: No Activity Self Limited: Yes Acute Coronary Syndrome Inclusion Criteria At DC or during hospital stay patient has or had the following: ACS DIAGNOSIS No Discharge Core Measures Meds if any: Prescribed or Continued at Discharge Meds if any: NOT Prescribed or Continued at Discharge Congestive Heart Failure Inclusion Criteria At DC or during hospital stay patient has or had the following: CHF DIAGNOSIS No Discharge Core Measures Meds if any: Prescribed or Continued at Discharge Meds if any: NOT Prescribed or Continued at Discharge Cerebrovascular accident Inclusion Criteria At DC or during hospital stay patient has or had the following: CVA/TIA Diagnosis No Discharge Core Measures Meds if any: Prescribed or Continued at Discharge Meds if any: NOT Prescribed or Continued at Discharge Venous thromboembolism Inclusion Criteria VTE Diagnosis No VTE Type NONE VTE Confirmed by (Test) NONE Discharge Core Measures - Per Current guidelines, there needs to be overlap - treatment for the first 5 days of Warfarin therapy. - If discharged on Warfarin prior to 5 days of - overlap therapy, the patient will need to be - assessed for post discharge needs including - *Post discharge parental anticoagulation - *Warfarin and/or parental anticoagulation education - *Follow up date to check INR post discharge At least 5 days overlap therapy as Inpatient No Meds if any: Prescribed or Continued at Discharge Note: Overlap Therapy is Warfarin and Anticoagulant Meds if any: NOT Prescribed or Continued at Discharge
--- NOTE | 2018-01-07 09:23 | Discharge Summary ---
Visit Information Visit Dates Admission Date: 01/04/18 Discharge Date: 01/07/18 Hospital Course Course Attending Physician: Brock Washington DO Primary Care Physician: Nolberto Colon MD Hospital Course: This is a 42 year-old male admitted with perforated sigmoid diverticulitis with no evidence of abscess. He was admitted to the surgical service under the care of Dr. Washington for nonoperative management. He was kept npo and started on IV antibiotics. Diet was advanced slowly and tolerated with return of bowel function. He was transitioned to oral antibiotics prior to discharge. Complications: None Allergies: Coded Allergies: morphine (VOMITING 01/04/18) Significant Procedures: None Pertinent Lab Results: SERVICE DATE: 01/04/18 EXAM TYPE: CAT - CT ABD & PELVIS W IV CONTRAST EXAMINATION: CT ABDOMEN AND PELVIS WITH CONTRAST CLINICAL INFORMATION: Generalized abdominal pain COMPARISON: 10/16/2011 TECHNIQUE: Multidetector volumetric imaging was performed from the lung bases through the pubic symphysis following the uneventful administration of: Oral contrast: No Intravenous contrast: 95 cc Optiray 320 Sagittal and coronal reformatted images were obtained on the technologist workstation. FINDINGS: LUNG BASES: The visualized lung bases are unremarkable. LIVER, GALLBLADDER, AND BILIARY TREE: The liver is normal in size, shape, and attenuation. No focal hepatic lesion or biliary ductal dilatation is present. The gallbladder is unremarkable with no evidence of radiopaque gallstones, gallbladder wall thickening, or obvious pericholecystic inflammatory changes. PANCREAS: Normal; no mass or surrounding fluid. SPLEEN: Normal size. No focal lesion. ADRENAL GLANDS: Normal; no mass. KIDNEYS AND URETERS: The kidneys are normal in size, shape, and attenuation. No hydronephrosis, hydroureter, or calculi. GASTROINTESTINAL TRACT: Stomach and small bowel are nondilated. The appendix is normal. There is moderate sigmoid diverticulosis with sigmoid wall thickening and adjacent fluid and fat stranding. The changes appear centered around a diverticulum in coronal image 41/91 and axial image 79/111, more consistent with acute diverticulitis and colitis. In addition, there is free air within the pelvis and extending retroperitoneally, adjacent the aorta and IVC, nearly to the level of the duodenum. No discrete abscess seen. ABDOMINAL WALL: No significant hernia is appreciated. LYMPHOVASCULAR STRUCTURES: No lymphadenopathy. The aorta is unremarkable. BLADDER: No focal mass or wall thickening seen. No bladder calculi. PELVIC VISCERA: The prostate and seminal vesicles are normal. OSSEOUS STRUCTURES: No acute or suspicious osseous abnormality. IMPRESSION: Findings consistent with perforated sigmoid diverticulitis. No abscess seen. Consider colonoscopy after treatment to exclude a microperforated colon cancer which can present similarly. Disposition Summary Disposition Principal Diagnosis: Perforated sigmoid diverticulitis Additional Diagnosis: None Discharge Disposition: home or self care Discharge Instructions General Discharge Information Code Status: Full Code Patient's Diet: Low fiber diet Patient's Activity: Ambulate as desired, no restrictions Follow-Up Instructions/Appts: 1. 1-2 weeks as needed with Dr. Washington 2. 1-2 weeks with PCP, Dr. Colon due to recent admission Medications at Discharge Discharge Medications: Continue taking these medications: Levothyroxine Sodium (Synthroid) 50 MCG TABLET 1 Tablet ORAL DAILY Duloxetine HCl (Duloxetine HCl) 60 MG CAPSULE. 1 Capsule ORAL DAILY Start taking the following new medications: Amoxicillin/Potassium Clav (Augmentin 875-125 Tablet) 875 MG-125 MG TABLET 1 Tablet ORAL TWICE DAILY Qty = 20 No Refills Instructions: take with food Metronidazole (Flagyl) 500 MG TABLET 1 Tablet ORAL THREE TIMES DAILY Qty = 30 No Refills Lactobacillus Acidophilus (Probiotic) 10 BILLION CELL CAPSULE 1 Capsule ORAL THREE TIMES DAILY Qty = 30 No Refills Instructions: available over the counter Ondansetron HCl (Zofran) 4 MG TABLET 1 Tablet ORAL Every 6-8 Hours as Needed as needed for NAUSEA/VOMITING Qty = 12 No Refills Instructions: as needed for nausea Copies To: Darlene SINGH,Nolberto Ly
[2018-01-07] MEDS ORDERED: AUGMENTIN 875-1 EACH PO (14:30)
[2018-01-07] MEDS ORDERED: FLAGYL500 MG PO (14:30)
[2018-01-07] MEDS ORDERED: ZOFRAN4 M2 PO (14:30)
[2018-01-07] MEDS ORDERED: PROBIOTIC1 EACH PO (14:30)
[2018-02-21] MEDS ORDERED: KEFLEX500 M1 PO (06:07)
[2018-02-21] MEDS ORDERED: IBUPROFEN800 M1 PO (06:07)
== END 2018-01-07 14:58 | DRG 392 ==
LOC: ERH 17:24 → 2NA 19:11 → ERHI 19:11 → CANRESERV 19:46 → ENRESERV 19:46 → ENTRNSPT 20:46 → ENRESERV 20:47 → EDTRNSPT 21:09 → EDTRNSPTSTS 21:09 → 2NA 21:20 → CMPTRNSPT 21:37 → 2NA 01-05 08:37
PROVIDERS: Physician Assistant
DX: K57.20 Diverticulitis of large intestine with perforation and abscess without bleeding (principal); F32.9 Major depressive disorder, single episode, unspecified; F41.9 Anxiety disorder, unspecified; Z88.5 Allergy status to narcotic agent; R00.0 Tachycardia, unspecified
CPT/HCPCS: 2NAP; 36415; 74177; 82436; 93005; 93010; 96374; 96375; J0131; J0696; J1580; J1644; J1885; J2405; J2765; J7042